=== PATIENT | male | born 1995 | race Caucasian/White ===

== ENCOUNTER 2023-07-13 10:23 | Emergency (ER) | payer BC, OTHER ==
[2023-07-13] MEDS ORDERED: Ketorolac Tromethamine 60 MG/2 ML VIAL ONE (11:03)
== END 2023-07-13 11:20 | disposition home or self-care (01) ==
LOC: MADERS 10:23
DX: S90.31XA Contusion of right foot, initial encounter (principal); F17.290 Nicotine dependence, other tobacco product, uncomplicated; X58.XXXA Exposure to other specified factors, initial encounter
CPT/HCPCS: 96372; J1885

== ENCOUNTER 2024-09-20 12:12 | Emergency (ER) | payer BC, SELFPAY ==
[2024-09-20] MEDS ORDERED: Bacitracin 1 PK ONE (12:25)
[2024-09-20] MEDS ORDERED: Amoxicillin/Potassium Clav 875 MG TAB ONE (12:25)
[2024-09-20] MEDS ORDERED: Boostrix 0.5 ML (Tdap) VIAL (>/=7 yrs of age) ONE (12:25)
== END 2024-09-20 12:33 | disposition home or self-care (01) ==
LOC: MADERS 12:12
DX: S81.851A Open bite, right lower leg, initial encounter (principal); F17.290 Nicotine dependence, other tobacco product, uncomplicated; W54.0XXA Bitten by dog, initial encounter; Z23 Encounter for immunization
CPT/HCPCS: 90471; 90715